=== PATIENT | male | born 1990 | race Caucasian/White ===

== ENCOUNTER → 2018-11-09 | Outpatient (CLI) | payer OTHER, SELFPAY ==
--- NOTE | 2018-11-10 08:29 | REP ---
Left knee series: Five views. History: Injury. Rule out glass foreign body. Findings: Five views of the left knee show no evidence of fracture or joint effusion. No intra-articular gas is seen. There are multiple soft tissue opacities in the prepatellar soft tissues consistent with glass shards. The largest of these measures 5 mm. Impression: No fracture noted. Multiple opaque soft tissue foreign bodies in the prepatellar soft tissues. Electronically Signed by Nithin Norman MD 11/10/2018 08:43 A
== END ==
LOC: M LRY 17:01
PROVIDERS: ATTEND Nurse Practitioner Family
DX: S89.92XA Unspecified injury of left lower leg, initial encounter (principal); X58.XXXA Exposure to other specified factors, initial encounter; Y92.89 Other specified places as the place of occurrence of the external cause